=== PATIENT | female | born 1990 | race African-American/Black ===

== ENCOUNTER 2018-03-17 16:08 | Emergency (ER) | payer OTHER ==
--- NOTE | 2018-03-17 16:23 | PDOC ---
Rapid Medical Evaluation Medical Evaluation: 03/17/18 16:17 I have performed a brief in-person evaluation of this patient. The patient presents with a chief complaint of: b/l ankle pain, L>R x 1 week. No trauma or other inciting factors. No recent travel. No CP, SOB or palpitations. H/o HTN on enalapril and seizures Pertinent physical exam findings: Tachy to 115, defer rest of exam to ED provider I have ordered the following:labs/upreg The patient will proceed to the ED for further evaluation 03/17/18 16:26 Discharge Disposition - Diagnosis Leg swelling - Referrals - Patient Instructions - Post Discharge Activity
[2018-03-17 16:26] VITALS: BP 125/65; PULSE 114; TEMP 98.2; BMI 28.1
--- NOTE | 2018-03-17 17:03 | PDOC ---
History of Present Illness - History of Present Illness Initial Comments: 03/17/18 17:02 Patient is a 28 year old female with past medical history of HTN and seizures, presented with 1-week history of bilateral ankle pain and swelling. Patient reported sudden onset bilateral ankle pain and swelling that started a week ago , worse on the left than on the right, aggravated by putting her weight on the ankles, relieved by rest. Patient also reported left wrist pain that started about the same time. Denies trauma, no medications taken. Denies fever, chills, headache, dizziness, nausea, vomiting, chest pain, SOB, palpitations, cough, abdominal pain, diarrhea, urinary symptoms. <Maisha Jeffrey - Last Filed: 03/17/18 17:09> <Russel Coleman - Last Filed: 03/17/18 19:44> - General Chief Complaint: Pain, Acute Stated Complaint: bilateral FOOT PAIN/swelling Time Seen by Provider: 03/17/18 16:32 Past History - Past Medical History COPD: No HTN: Yes Seizures: Yes - Suicide/Smoking/Psychosocial Hx Smoking History: Never smoked Have you smoked in the past 12 months: No Information on smoking cessation initiated: No Hx Alcohol Use: No Drug/Substance Use Hx: No <Maisha Jeffrey - Last Filed: 03/17/18 17:09> <Russel Coleman - Last Filed: 03/17/18 19:44> - Past Medical History Allergies/Adverse Reactions: Allergies Allergy/AdvReac Type Severity Reaction Status Date / Time No Known Allergies Allergy Verified 03/17/18 16:26 Home Medications: Ambulatory Orders Divalproex Sodium 250 mg PO DAILY 03/17/18 Review of Systems - Review of Systems Constitutional: No: Chills, Fever, Malaise, Weakness, Unintentional Wgt. Loss HEENTM: No: Eye Pain, Recent change in vision, Nose Congestion, Throat Swelling , Difficulty Swallowing Respiratory: No: Cough, Shortness of Breath Cardiac (ROS): No: Chest Pain, Lightheadedness ABD/GI: No: Abdominal Distended, Diarrhea, Nausea, Vomiting, Abdominal cramping : No: Burning, Dysuria, Discharge Musculoskeletal: Yes: Other (b/l ankle pain, b/l lower leg swelling) Neurological: No: Headache, Numbness, Tingling, Weakness <Manalot-Chauncey,Maisha - Last Filed: 03/17/18 17:09> *Physical Exam - Vital Signs Last Vital Signs Temp Pulse Resp BP Pulse Ox 98.2 F 114 H 16 125/65 100 03/17/18 16:24 18 16:24 18 16:24 18 16:24 03/17/18 16:24 - Physical Exam Comments: 03/17/18 17:06 General: awake, alert, oriented, not in acute distress Head: no signs of head trauma HEENT:PERRLA, EOMI, Neck:soft, supple, trachea midline without LAD Heart:regular rate and rhythm, normal S1/S2, no m,r,g Lungs:clear to auscultation bilaterally Abdomen:soft, nontender, nondistended, NABS Ext: DP pulses palpable, +b/l pitting edema of LE <Maisha Jeffrey - Last Filed: 03/17/18 17:09> - Vital Signs Last Vital Signs Temp Pulse Resp BP Pulse Ox 98.2 F 114 H 16 125/65 100 03/17/18 16:24 03/17/18 16:24 03/17/18 16:24 03/17/18 16:24 03/17/18 16:24 <Russel Coleman - Last Filed: 03/17/18 19:44> Moderate Sedation - Procedure Monitoring Vital Signs: Procedure Monitoring Vital Signs Temperature 98.2 F 03/17/18 16:24 Pulse Rate 114 H 03/17/18 16:24 Respiratory Rate 16 03/17/18 16:24 Blood Pressure 125/65 03/17/18 16:24 O2 Sat by Pulse Oximetry (%) 100 03/17/18 16:24 <Maisha Jeffrey - Last Filed: 03/17/18 17:09> - Procedure Monitoring Vital Signs: Procedure Monitoring Vital Signs Temperature 98.2 F 03/17/18 16:24 Pulse Rate 114 H 03/17/18 16:24 Respiratory Rate 16 03/17/18 16:24 Blood Pressure 125/65 03/17/18 16:24 O2 Sat by Pulse Oximetry (%) 100 03/17/18 16:24 <Russel Coleman - Last Filed: 03/17/18 19:44> ED Treatment Course - LABORATORY CBC & Chemistry Diagram: 03/17/18 16:46 03/17/18 16:46 - ADDITIONAL ORDERS Additional order review: Laboratory Results 03/17/18 03/17/18 03/17/18 17:40 17:40 17:40 Sodium Potassium Chloride Carbon Dioxide Anion Gap BUN Creatinine Creat Clearance w eGFR Random Glucose Calcium Total Bilirubin AST ALT Alkaline Phosphatase Creatine Kinase 87 Troponin I < 0.02 B-Natriuretic Peptide 26.9 Total Protein Albumin Urine Color Yellow Urine Appearance Slcloudy Urine pH 6.0 Ur Specific [place] 1.018 Urine Protein 42 H Negative Urine Glucose (UA) Negative Urine Ketones Negative Urine Blood Negative Urine Nitrite Negative Urine Bilirubin Negative Urine Urobilinogen Negative Ur Leukocyte Esterase Negative Urine HCG, Qual Negative 03/17/18 16:46 Sodium 134 L Potassium 4.8 Chloride 101 Carbon Dioxide 24 Anion Gap 9 BUN 8 Creatinine 0.6 Creat Clearance w eGFR > 60 Random Glucose 122 H Calcium 8.8 Total Bilirubin 0.2 AST 13 L ALT 35 Alkaline Phosphatase 144 H Creatine Kinase Troponin I B-Natriuretic Peptide Total Protein 8.2 Albumin 3.0 L Urine Color Urine Appearance Urine pH Ur Specific [place] Urine Protein Urine Glucose (UA) Urine Ketones Urine Blood Urine Nitrite Urine Bilirubin Urine Urobilinogen Ur Leukocyte Esterase Urine HCG, Qual 03/17/18 16:46 RBC 3.63 MCV 78.5 L MCHC 33.7 RDW 14.5 MPV 6.8 L Neutrophils % 72.7 Lymphocytes % 15.2 Monocytes % 10.3 H Eosinophils % 1.4 Basophils % 0.4 <Russel Coleman - Last Filed: 03/17/18 19:44> Medical Decision Making - Medical Decision Making 03/17/18 17:33 Patient is a 28 year old female with past medical history of HTN and seizures, presented with 1-week history of bilateral ankle pain and swelling. DDx include but not limited to DVT, renal disease, arthritis CBC, CMP Cardiac enzymes, BNP UA, urine protein, urine b-hcg EKG Doppler ultrasound bilateral leg <Maisha Jeffrey - Last Filed: 03/17/18 17:09> *DC/Admit/Observation/Transfer <Maisha Jeffrey - Last Filed: 03/17/18 17:09> <Russel Coleman - Last Filed: 03/17/18 19:44> Diagnosis at time of Disposition: Leg swelling - Referrals Referrals: Solange Montague [Primary Care Provider] - - Patient Instructions Printed Discharge Instructions: DI for Nephrotic Syndrome Additional Instructions: Your leg swelling may be a result of a kidney problem. You MUST see a bell hole digger (kidney specialist) and have additional tests to have this further evaluated, as if this problem is untreated, it may lead to severe illness, kidney failure, disability, or even . Please return to the ER as soon as possible to continue your care.
[2018-03-17 18:01] LABS: BASO % 0.4 % (0-2.0); EOS % 1.4 % (0-4.5); HEMATOCRIT 28.5 % (32.4-45.2); HEMOGLOBIN 9.6 GM/dL (10.7-15.3); LYMPH % 15.2 % (8-40); MCH 26.4 pg (25.7-33.7); MCHC 33.7 g/dl (32.0-36.0); MEAN CELL VOLUME 78.5 fl (80-96); MEAN PLT VOLUME 6.8 fl (7.5-11.1); MONO % 10.3 % (3.8-10.2); NEUT % 72.7 % (42.8-82.8); PLATELET COUNT 803 K/MM3 (134-434); RBC 3.63 M/mm3 (3.60-5.2); RDW 14.5 % (11.6-15.6); WHITE BLOOD COUNT 14.6 K/mm3 (4.0-10.0)
[2018-03-17 18:05] LABS: HCG,QUALITATIVE URINE Negative
[2018-03-17 18:06] LABS: URINE APPEARANCE SLCLOUDY; URINE BILIRUBIN NEGATIVE (<2.0 mg/dL); URINE COLOR YELLOW; URINE GLUCOSE (UA) NEGATIVE (NEGATIVE); URINE KETONE NEGATIVE (NEGATIVE); URINE LEUK ESTERASE NEGATIVE (NEGATIVE); URINE NITRITE NEGATIVE (NEGATIVE); URINE PROTEIN NEGATIVE (NEGATIVE); URINE UROBILINOGEN NEGATIVE mg/dL (0.2-1.0)
[2018-03-17 18:23] LABS: N-TERMINAL BNP 26.9 pg/ml (5-125)
[2018-03-17 18:29] LABS: ALK PHOS 144 U/L (45-117); ANION GAP 9 MMOL/L (8-16); BILIRUBIN,TOTAL 0.2 mg/dL (0.2-1); BLOOD UREA NITROGEN 8 mg/dL (7-18); CALCIUM 8.8 mg/dL (8.5-10.1); CHLORIDE 101 mmol/L (98-107); CO2 24 mmol/L (21-32); CREATININE 0.6 mg/dL (0.55-1.3); GLUCOSE,RANDOM 122 mg/dL (74-106); POTASSIUM 4.8 mmol/L (3.5-5.1); SGOT/AST 13 U/L (15-37); SGPT/ALT 35 U/L (13-61); SODIUM 134 mmol/L (136-145); TOT PROT 8.2 g/dl (6.4-8.2)
--- NOTE | 2018-03-17 19:22 | PDOC ---
Attending Attestation - Resident Resident Name: Maisha Jeffrey - ED Attending Attestation I have performed the following: I have examined & evaluated the patient, The case was reviewed & discussed with the resident, I agree w/resident's findings & plan, Exceptions are as noted - HPI HPI: 03/17/18 19:17 The patient is a 28 year old female, with a significant past medical history HTN and seizures, who presents to the emergency department with bilateral ankle pain and swelling for one week. She states the left ankle started first and then the right ankle pain and swelling followed. She denies any trauma, redness or increased warmth. Denies F/C. Denies any recent travel/immobilization. She denies any recent illnesses or sick contacts. The patient denies chest pain, shortness of breath, headache and dizziness. The patient denies fever, chills, nausea, vomit, diarrhea and constipation. The patient denies dysuria, frequency, urgency and hematuria. Allergies: NKDA - Physicial Exam PE: 03/17/18 19:22 "GENERAL: Awake, alert, and fully oriented, in no acute distress. HEAD: No signs of trauma EYES: PERRLA, EOMI, sclera anicteric, conjunctiva clear ENT: Auricles normal inspection, hearing grossly normal, nares patent, oropharynx clear without exudates. Moist mucosa NECK: Nontender, no stepoffs, Normal ROM, supple, no lymphadenopathy, JVD, or masses LUNGS: Breath sounds equal, clear to auscultation bilaterally. No wheezes, and no crackles HEART: Regular rate and rhythm, normal S1 and S2, no murmurs, rubs or gallops ABDOMEN: Soft, nontender, normoactive bowel sounds. No guarding, no rebound. No masses EXTREMITIES: + BLE edema, L>R NEUROLOGICAL: Cranial nerves II through XII intact. 5/5 strength and sensation in all extremities, Normal speech, normal gait, normal cerebellar function SKIN: Warm, Dry, normal turgor, no rashes or lesions noted. - Medical Decision Making 03/17/18 19:23 28 F with BLE swelling. Low suspicion for DVT but given asymmetric swelling, will r/o with US. Will check kidney function as well as cardiac enzymes. - Labs, UA - BLE doppler 03/17/18 19:39 Labs notable for + proteinuria, low serum albumin Likely nephrotic syndrome Spoke with Dr. Regalado, who recommends admission for renal biopsy, serologies, lipid panel. However, pt refusing admission at this time, stating that she has things to do. The patient is clinically sober, free from distracting injury, appears to have intact insight and judgment and reason and in my opinion has the capacity to make decisions. The patient presented with leg swelling. I have explained that I am concerned that this may represent kidney disease; they have verbalized an understanding of my concerns. I have discussed the need for nephrology consultation and possible admission to the hospital to get more information about potential causes of the patients kidney disease. I have told the patient that if they leave, they could get much worse, could become critically ill, and could possibly become disabled or . I have discussed these concerns with the patients father who is at the bedside and he is unable to convince them to stay for further evaluation. Pt is unwilling to stay overnight for monitoring. She is refusing any further care and is leaving against medical advice. I am unable to convince the patient to stay, I have asked them to return as soon as possible to complete their evaluation. I have answered all their questions.
--- NOTE | 2018-03-18 06:25 | PDOC ---
*Physical Exam - Vital Signs Last Vital Signs Temp Pulse Resp BP Pulse Ox 98.2 F 114 H 16 125/65 100 03/17/18 16:24 03/17/18 16:24 03/17/18 16:24 03/17/18 16:24 03/17/18 16:24 ED Treatment Course - LABORATORY CBC & Chemistry Diagram: 03/17/18 16:46 03/17/18 16:46 - ADDITIONAL ORDERS Additional order review: Laboratory Results 03/17/18 03/17/18 03/17/18 17:40 17:40 16:46 Sodium 134 L Potassium 4.8 Chloride 101 Carbon Dioxide 24 Anion Gap 9 BUN 8 Creatinine 0.6 Creat Clearance w eGFR > 60 Random Glucose 122 H Calcium 8.8 Total Bilirubin 0.2 AST 13 L ALT 35 Alkaline Phosphatase 144 H Creatine Kinase 87 Troponin I < 0.02 B-Natriuretic Peptide 26.9 Total Protein 8.2 Albumin 3.0 L Urine Protein 42 H 03/17/18 16:46 RBC 3.63 MCV 78.5 L MCHC 33.7 RDW 14.5 MPV 6.8 L Neutrophils % 72.7 Lymphocytes % 15.2 Monocytes % 10.3 H Eosinophils % 1.4 Basophils % 0.4 Medical Decision Making - Medical Decision Making 03/18/18 06:21 Pt signed out to me. Patient is a 28 year old female with past medical history of HTN and seizures, presented with 1-week history of bilateral ankle pain and swelling. Patient reported sudden onset bilateral ankle pain and swelling that started a week ago , worse on the left than on the right, aggravated by putting her weight on the ankles, relieved by rest. Patient also reported left wrist pain that started about the same time. Denies trauma, no medications taken. Denies fever, chills, headache, dizziness, nausea, vomiting, chest pain, SOB, palpitations, cough, abdominal pain, diarrhea, urinary symptoms. Labs significant for: Laboratory Tests 03/17/18 03/17/18 03/17/18 16:46 16:46 17:40 WBC 14.6 H Hgb 9.6 L Hct 28.5 L BUN 8 Creatinine 0.6 Urine Protein 42 03/18/18 06:[address] Coleman called Dr. Regalado who recommended admission for expidition of workup and close follow up. Pt did not want to stay today. Pt advised that admission would best and that leaving AMA increases risk for , increased swelling, difficulties with respiration, increased kidney damage. Pt signed out AMA. Advised pt to see a pressure vessel inspector as soon as possible. *DC/Admit/Observation/Transfer Diagnosis at time of Disposition: Leg swelling - Discharge Dispostion Disposition: AGAINST MEDICAL ADVICE - Referrals Referrals: Solange Montague [Primary Care Provider] - - Patient Instructions Printed Discharge Instructions: DI for Nephrotic Syndrome Additional Instructions: Your leg swelling may be a result of a kidney problem. You MUST see a pressure vessel inspector (kidney specialist) and have additional tests to have this further evaluated, as if this problem is untreated, it may lead to severe illness, kidney failure, disability, or even . Please return to the ER as soon as possible to continue your care. - Post Discharge Activity
--- NOTE | 2018-03-18 12:48 | EKG ---
Test Reason : Blood Pressure : / mmHG Vent. Rate : 102 BPM Atrial Rate : 102 BPM P-R Int : 122 ms QRS Dur : 070 ms QT Int : 332 ms P-R-T Axes : 042 047 016 degrees QTc Int : 432 ms SINUS TACHYCARDIA OTHERWISE NORMAL ECG NO PREVIOUS ECGS AVAILABLE Confirmed by CORY MCCLOUD MD ([id number]) on 03/18/2018 12:48:19 PM Referred By: Confirmed By:CORY MCCLOUD MD
== END 2018-03-17 19:59 | disposition left against medical advice (07) ==
LOC: JER 16:08
DX: M79.89 Other specified soft tissue disorders (principal); I10 Essential (primary) hypertension
CPT/HCPCS: 36415; 80053; 81003; 82550; 83880; 84156; 84484; 84703; 85025; 93005; 93010; 93970-TC; 99282-25